=== PATIENT | female | born 1950 | race Caucasian/White ===

== ENCOUNTER 2016-09-27 07:30 | Inpatient (IN) | payer OTHER ==
[~2016-09-27] VITALS: Ht 149.9 cm; Wt 111.1 kg
[~2016-09-27 07:30] MED LIST: ACCUPRIL20 MG PO; ASPIRIN81 M1 PO; BENICAR20 MG PO; CALTRATE600 MG PO; CEFPODOXIME PR200 MG PO; FENOFIBRATE160 M1 PO; GLUCOPHAGE500 MG PO; HYDROCHLOROTH12.5 M3 PO; LEVAQUIN750 MG PO; LEVOTHROID100 MCG PO; LISINOPRIL-HCT1 EAC3 PO; LO-DOSE ASPIRIN81 M2 PO; LOPID600 M1 PO; PREDNISONE50 MG PO; PROVENTIL HFA6.7 GM IH; SYNTHROID125 MCG PO
[2016-09-27 09:32] VITALS: BP 113/59
[2016-09-27 09:53] LABS: POINT-OF-CARE METER ID UU14174212
[2016-09-27 14:23] LABS: POINT-OF-CARE USER ID 515036437
[2016-09-27 16:45] VITALS: BP 117/64
[2016-09-27 17:50] LABS: POINT-OF-CARE USER ID STWLMB34
[2016-09-27 17:57] LABS: HEMATOCRIT 40.9 % (36.0-46.0); MCH 30.4 PG (29.0-34.0); MCHC 33.3 G/DL (30.0-36.0); MCV 91.3 FL (83-99); MEAN PLAT.VOLUME 9.7 uM^3 (9.5-12.4); RBC DIS.WIDTH-CV 13.2 % (11.8-14.6); RBC DIS.WIDTH-SD 43.8 % (39-53); RED BLOOD COUNT 4.48 M/uL (3.80-5.20)
[2016-09-27 18:02] LABS: PLATELET COUNT 281 K/uL (156-360); WHITE BLOOD COUNT 11.5 K/uL (4.1-10.2)
[2016-09-27 18:20] LABS: ANION GAP 10 MEQ/L (2-14); CHLORIDE 107 MEQ/L (99-109); GFR ESTIMATE (CALCULATED) > 59 mL/min/; GLUCOSE 154 mg/dL (70-99); POTASSIUM 3.6 MEQ/L (3.7-5.4); SAMPLE HEMOLYSIS CHECK 0; SAMPLE ICTERIC CHECK 0; SAMPLE LIPEMIA CHECK 0; SODIUM 141 MEQ/L (136-147); UREA NITROGEN (BUN) 21 mg/dL (9-23)
[2016-09-27 20:44] VITALS: BP 124/70
[2016-09-28] VITALS (7 sets, daily range): BP systolic 111–120; BP diastolic 55–63
[2016-09-28 07:51] LABS: HEMATOCRIT 39.2 % (36.0-46.0); MCHC 33.2 G/DL (30.0-36.0); MCV 93.3 FL (83-99); PLATELET COUNT 296 K/uL (156-360); RBC DIS.WIDTH-CV 13.6 % (11.8-14.6); RBC DIS.WIDTH-SD 46.2 % (39-53); WHITE BLOOD COUNT 9.9 K/uL (4.1-10.2)
[2016-09-28 08:17] LABS: ANION GAP 8 MEQ/L (2-14); CHLORIDE 102 MEQ/L (99-109); GFR ESTIMATE (CALCULATED) > 59 mL/min/; GLUCOSE 130 mg/dL (70-99); SAMPLE HEMOLYSIS CHECK 0; SAMPLE ICTERIC CHECK 0; SAMPLE LIPEMIA CHECK 0; SODIUM 139 MEQ/L (136-147); UREA NITROGEN (BUN) 15 mg/dL (9-23)
[2016-09-28 08:24] LABS: POTASSIUM 4.7 MEQ/L (3.7-5.4)
[2016-09-29 00:02] VITALS: BP 114/55
[2016-09-29 03:47] VITALS: BP 115/57
[2016-09-29 06:52] LABS: HEMATOCRIT 37.6 % (36.0-46.0); MCH 30.9 PG (29.0-34.0); MCHC 33.2 G/DL (30.0-36.0); MCV 92.8 FL (83-99); MEAN PLAT.VOLUME 10.2 uM^3 (9.5-12.4); PLATELET COUNT 274 K/uL (156-360); RBC DIS.WIDTH-CV 13.6 % (11.8-14.6); RBC DIS.WIDTH-SD 46.2 % (39-53); RED BLOOD COUNT 4.05 M/uL (3.80-5.20); WHITE BLOOD COUNT 8.9 K/uL (4.1-10.2)
[2016-09-29 07:20] LABS: ANION GAP 8 MEQ/L (2-14); CHLORIDE 101 MEQ/L (99-109); GFR ESTIMATE (CALCULATED) > 59 mL/min/; GLUCOSE 111 mg/dL (70-99); POTASSIUM 3.8 MEQ/L (3.7-5.4); SAMPLE HEMOLYSIS CHECK 0; SAMPLE ICTERIC CHECK 0; SAMPLE LIPEMIA CHECK 0; SODIUM 137 MEQ/L (136-147); UREA NITROGEN (BUN) 12 mg/dL (9-23)
[2016-09-29 07:32] VITALS: BP 119/74
[2016-09-29] MEDS ORDERED: TRAMADOL HCL50 MG PO (09:24)
== END 2016-09-29 10:18 | disposition home or self-care (01) | DRG 740 ==
LOC: 2SOUTH 07:30 → 2EAST 09:08 → 2SOUTH 10:03 → 2EAST 15:48
PROVIDERS: Obstetrics & Gynecology Gynecologic Oncology
DX: C54.1 Malignant neoplasm of endometrium (principal); D25.9 Leiomyoma of uterus, unspecified; E66.01 Morbid (severe) obesity due to excess calories; Z68.42 Body mass index [BMI] 45.0-49.9, adult; I10 Essential (primary) hypertension; E11.9 Type 2 diabetes mellitus without complications; E78.00 Pure hypercholesterolemia, unspecified; Z85.850 Personal history of malignant neoplasm of thyroid; E89.0 Postprocedural hypothyroidism; Z86.718 Personal history of other venous thrombosis and embolism; Z86.011 Personal history of benign neoplasm of the brain; Z79.82 Long term (current) use of aspirin; Z79.84 Long term (current) use of oral hypoglycemic drugs; Z88.1 Allergy status to other antibiotic agents
CPT/HCPCS: 36415; 80048; 82948; 85027; 86850; 86900; 86901; 86920; 88305; 88309; 88360; 94799; J0330; J0690; J1100; J1170; J1650; J1815; J2250; J2270; J2405; J2710; J2765; J3010; J7120

== ENCOUNTER 2017-05-16 11:12 | Observation (INO) | payer OTHER ==
[~2017-05-16] VITALS: Ht 154.9 cm; Wt 105.3 kg
[~2017-05-16 11:12] MED LIST changes: +TRAMADOL HCL50 MG PO
[2017-05-16 13:08] LABS: EOSINOPHIL (%) 6.8 % (0-5); EOSINOPHIL COUNT 0.5 K/uL (0-0.3); HEMATOCRIT 44.1 % (36.0-46.0); IMMATURE GRANULOCYTE (%) 0.6 % (0.0-0.7); INSTRUMENT ABS NEUTROPHIL CT 5.3 K/uL; LYMPHOCYTE COUNT 0.9 K/uL (1.0-2.8); MCH 30.5 PG (29.0-34.0); MCHC 32.7 G/DL (30.0-36.0); MCV 93.4 FL (83-99); MEAN PLAT.VOLUME 9.6 uM^3 (9.5-12.4); MONOCYTE (%) 1.9 % (3-12); MONOCYTE COUNT 0.1 K/uL (0-0.8); NEUTROPHIL (%) 78.1 % (45-76); NEUTROPHIL COUNT 5.3 K/uL (1.8-6.4); PLATELET COUNT 310 K/uL (156-360); RBC DIS.WIDTH-CV 13.1 % (11.8-14.6); RBC DIS.WIDTH-SD 44.5 % (39-53); RED BLOOD COUNT 4.72 M/uL (3.80-5.20); WHITE BLOOD COUNT 6.8 K/uL (4.1-10.2)
[2017-05-16 13:12] LABS: PROTHROMBIN TIME 11.3 SEC (10.2-12.9)
[2017-05-16 13:15] LABS: PTT 34.3 SEC (25-37)
[2017-05-16 13:24] LABS: CHLORIDE 105 mEq/L (99-109); POTASSIUM 4.4 mEq/L (3.7-5.4); SODIUM 141 mEq/L (136-147)
[2017-05-16 13:25] LABS: MAGNESIUM 1.9 mg/dL (1.3-2.7)
[2017-05-16 13:26] LABS: GLUCOSE 120 mg/dL (70-99)
[2017-05-16 13:28] LABS: ANION GAP 12 MEQ/L (2-14)
[2017-05-16 13:30] LABS: GFR ESTIMATE (CALCULATED) 59 mL/min/
[2017-05-16 13:31] LABS: TROP-I INTERPRETATION NEGATIVE; TROPONIN-I < 0.01 ng/mL (0.0-0.30); UREA NITROGEN (BUN) 24 mg/dL (9-23)
[2017-05-16] MEDS ORDERED: PROAIR HFA8.5 GM IH (16:43)
[2017-05-16 18:27] VITALS: BP 188/84
[2017-05-16 19:33] VITALS: BP 125/64
[2017-05-16 20:16] LABS: TROP-I INTERPRETATION NEGATIVE; TROPONIN-I 0.02 ng/mL (0.0-0.30)
[2017-05-16 23:33] VITALS: BP 112/54
[2017-05-17 01:20] LABS: TROP-I INTERPRETATION NEGATIVE; TROPONIN-I < 0.01 ng/mL (0.0-0.30)
[2017-05-17 03:14] VITALS: BP 110/53
[2017-05-17 05:19] LABS: CHLORIDE 108 mEq/L (99-109); POTASSIUM 4.6 mEq/L (3.7-5.4); SODIUM 140 mEq/L (136-147)
[2017-05-17 05:20] LABS: GLUCOSE 153 mg/dL (70-99)
[2017-05-17 05:22] LABS: ANION GAP 9 MEQ/L (2-14)
[2017-05-17 05:24] LABS: GFR ESTIMATE (CALCULATED) > 59 mL/min/
[2017-05-17 05:25] LABS: UREA NITROGEN (BUN) 25 mg/dL (9-23)
[2017-05-17 06:27] LABS: POINT-OF-CARE METER ID UU14208753
[2017-05-17 07:45] VITALS: BP 114/55
[2017-05-17 12:15] VITALS: BP 115/59
[2017-05-17 16:20] LABS: POINT-OF-CARE METER ID UU14117124
[2017-05-17 16:30] VITALS: BP 113/57
[2017-05-17 19:36] VITALS: BP 109/57
[2017-05-17 23:29] VITALS: BP 102/56
[2017-05-18 03:30] VITALS: BP 110/64
[2017-05-18 07:04] LABS: POINT-OF-CARE METER ID UU14117124
[2017-05-18 07:46] VITALS: BP 129/62
[2017-05-18] MEDS ORDERED: LEVAQUIN750 MG PO (10:58)
[2017-05-18] MEDS ORDERED: PREDNISONE20 MG PO ×2 (11:07→11:31)
[2017-05-18] MEDS ORDERED: ADVAIR HFA120 INHALA IH (11:17)
[2017-05-18] MEDS ORDERED: MUCINEX D ER T1 EACH PO (11:17)
[2017-05-18] MEDS ORDERED: ADVAIR 250/501 DISK IH (11:31)
[2017-05-18] MEDS ORDERED: MUCINEX600 MG PO (11:33)
[2017-05-18 11:39] VITALS: BP 129/73
[2017-05-18 12:00] LABS: POINT-OF-CARE METER ID UU14117124
[2017-05-18] MEDS ORDERED: VENTOLIN HFA18 GM IH (23:42)
== END 2017-05-18 13:00 | disposition home or self-care (01) ==
LOC: EME 11:12 → EDOF 16:17 → 3EAST 16:17 → ENRESERV 16:19 → 3EAST 18:10
PROVIDERS: Emergency Medicine; Internal Medicine
DX: J20.9 Acute bronchitis, unspecified (principal); J96.01 Acute respiratory failure with hypoxia; E66.01 Morbid (severe) obesity due to excess calories; Z68.41 Body mass index [BMI] 40.0-44.9, adult; E11.9 Type 2 diabetes mellitus without complications; I10 Essential (primary) hypertension; E89.0 Postprocedural hypothyroidism; Z85.850 Personal history of malignant neoplasm of thyroid; Z85.42 Personal history of malignant neoplasm of other parts of uterus; Z86.011 Personal history of benign neoplasm of the brain; Z90.49 Acquired absence of other specified parts of digestive tract; Z90.710 Acquired absence of both cervix and uterus; Z86.718 Personal history of other venous thrombosis and embolism; Z79.82 Long term (current) use of aspirin; Z79.4 Long term (current) use of insulin; Z88.2 Allergy status to sulfonamides; Z88.8 Allergy status to other drugs, medicaments and biological substances
CPT/HCPCS: 71275; 80048; 82948; 83735; 84484; 85025; 85610; 85730; 93005; 94640; 94640 76; 94799; 99202; G0378; J1650; J1815; J1956; J2920; J2930; J7030; J7512

== ENCOUNTER 2017-05-18 21:25 | Emergency (ER) | payer OTHER ==
[~2017-05-18] VITALS: Ht 154.9 cm; Wt 106.6 kg
[~2017-05-18 21:25] MED LIST changes: +ADVAIR 250/501 DISK IH; +ADVAIR HFA120 INHALA IH; +MUCINEX D ER T1 EACH PO; +MUCINEX600 MG PO; +PREDNISONE20 MG PO; +PROAIR HFA8.5 GM IH
[2017-05-18] MEDS ORDERED: VENTOLIN HFA18 GM IH (23:42)
[2017-05-19 00:19] VITALS: BP 124/66
== END 2017-05-19 00:21 | disposition home or self-care (01) ==
LOC: EME 21:25
DX: R06.00 Dyspnea, unspecified (principal); T48.6X5A Adverse effect of antiasthmatics, initial encounter; J44.9 Chronic obstructive pulmonary disease, unspecified; E78.5 Hyperlipidemia, unspecified; E11.9 Type 2 diabetes mellitus without complications; Z79.84 Long term (current) use of oral hypoglycemic drugs; Z85.850 Personal history of malignant neoplasm of thyroid; Z86.718 Personal history of other venous thrombosis and embolism; Z79.82 Long term (current) use of aspirin; Z90.49 Acquired absence of other specified parts of digestive tract
CPT/HCPCS: 94640; 99281; 99284

== ENCOUNTER 2017-07-28 20:15 | Inpatient (IN) | payer OTHER ==
[~2017-07-28] VITALS: Ht 157.5 cm; Wt 104.3 kg
[~2017-07-28 20:15] MED LIST changes: +VENTOLIN HFA18 GM IH
[2017-07-28 21:05] LABS: HEMATOCRIT 45.5 % (36.0-46.0); MCH 31.2 PG (29.0-34.0); MCHC 33.6 G/DL (30.0-36.0); MCV 92.7 FL (83-99); MEAN PLAT.VOLUME 9.4 uM^3 (9.5-12.4); PLATELET COUNT 373 K/uL (156-360); RBC DIS.WIDTH-CV 13.1 % (11.8-14.6); RBC DIS.WIDTH-SD 44.3 % (39-53); RED BLOOD COUNT 4.91 M/uL (3.80-5.20); WHITE BLOOD COUNT 8.7 K/uL (4.1-10.2)
[2017-07-28 21:15] LABS: CHLORIDE 104 mEq/L (99-109); POTASSIUM 4.1 mEq/L (3.7-5.4); SODIUM 140 mEq/L (136-147)
[2017-07-28 21:16] LABS: GLUCOSE 121 mg/dL (70-99)
[2017-07-28 21:18] LABS: ANION GAP 10 MEQ/L (2-14)
[2017-07-28 21:20] LABS: GFR ESTIMATE (CALCULATED) 53 mL/min/
[2017-07-28 21:21] LABS: UREA NITROGEN (BUN) 22 mg/dL (9-23)
[2017-07-28 21:24] LABS: TROP-I INTERPRETATION NEGATIVE; TROPONIN-I < 0.01 ng/mL (0.0-0.30)
[2017-07-29] MEDS ORDERED: DUONEB 2.5-0.5 M3 ML AEROSOL (01:57)
[2017-07-29] MEDS ORDERED: HYDROCHLOROTH12.5 M3 PO (01:58)
[2017-07-29] MEDS ORDERED: ATARAX,VISTARIL25 MG PO (01:59)
[2017-07-29] MEDS ORDERED: VITAMIN D22000 UNIT PO (02:01)
[2017-07-29] MEDS ORDERED: BENZONATATE100 MG PO (02:03)
[2017-07-29 06:50] LABS: POINT-OF-CARE METER ID UU13113725
[2017-07-29 07:36] VITALS: BP 102/59
[2017-07-29 11:01] VITALS: BP 105/57
[2017-07-29 11:12] LABS: POINT-OF-CARE METER ID UU13113774
[2017-07-29 15:11] LABS: INFLUENZA A VIRAL ANTIGEN NEGATIVE; INFLUENZA B VIRAL ANTIGEN NEGATIVE
[2017-07-29 15:47] VITALS: BP 92/54
[2017-07-29 16:01] VITALS: BP 94/51
[2017-07-29 16:19] LABS: POINT-OF-CARE METER ID UU13113774
[2017-07-29 21:23] LABS: POINT-OF-CARE METER ID UU13113725
[2017-07-29 23:56] VITALS: BP 107/58
[2017-07-30 06:27] LABS: POINT-OF-CARE METER ID UU13113725
[2017-07-30 06:30] LABS: EOSINOPHIL (%) 0 % (0-5); HEMATOCRIT 40.3 % (36.0-46.0); IMMATURE GRANULOCYTE (%) 0.5 % (0.0-0.7); IMMATURE GRANULOCYTE COUNT 0.1 K/uL; INSTRUMENT ABS NEUTROPHIL CT 8.8 K/uL; LYMPHOCYTE COUNT 1.1 K/uL (1.0-2.8); MCH 31.3 PG (29.0-34.0); MCHC 33.5 G/DL (30.0-36.0); MCV 93.3 FL (83-99); MEAN PLAT.VOLUME 9.7 uM^3 (9.5-12.4); MONOCYTE (%) 2.6 % (3-12); MONOCYTE COUNT 0.3 K/uL (0-0.8); NEUTROPHIL (%) 86.3 % (45-76); NEUTROPHIL COUNT 8.8 K/uL (1.8-6.4); PLATELET COUNT 315 K/uL (156-360); RBC DIS.WIDTH-SD 44.7 % (39-53); RED BLOOD COUNT 4.32 M/uL (3.80-5.20); WHITE BLOOD COUNT 10.2 K/uL (4.1-10.2)
[2017-07-30 06:45] VITALS: BP 116/59
[2017-07-30 06:52] LABS: ALKALINE PHOSPHATASE 54 IU/L (3-129); ANION GAP 9 MEQ/L (2-14); CHLORIDE 105 MEQ/L (99-109); GFR ESTIMATE (CALCULATED) > 59 mL/min/; GLUCOSE 162 mg/dL (70-99); POTASSIUM 4.5 MEQ/L (3.7-5.4); SAMPLE HEMOLYSIS CHECK 0; SAMPLE ICTERIC CHECK 0; SAMPLE LIPEMIA CHECK 0; SODIUM 141 MEQ/L (136-147); TOTAL BILIRUBIN 0.3 MG/DL (0.0-1.0); UREA NITROGEN (BUN) 29 mg/dL (9-23)
[2017-07-30 11:04] LABS: POINT-OF-CARE METER ID UU13113725
[2017-07-30 15:20] VITALS: BP 111/55
[2017-07-30 16:19] LABS: POINT-OF-CARE METER ID UU13113725
[2017-07-30 21:29] LABS: POINT-OF-CARE METER ID UU13113725
[2017-07-30 23:27] VITALS: BP 106/59
[2017-07-31 06:00] LABS: POINT-OF-CARE METER ID UU13113725
[2017-07-31 06:46] LABS: GFR ESTIMATE (CALCULATED) > 59 mL/min/; UREA NITROGEN (BUN) 29 mg/dL (9-23)
[2017-07-31 07:43] VITALS: BP 108/60
[2017-07-31] MEDS ORDERED: PREDNISONE10 MG PO (08:19)
[2017-07-31] MEDS ORDERED: ADVAIR HFA120 INHALA IH (08:19)
[2017-07-31] MEDS ORDERED: CEFTIN500 MG PO (08:19)
== END 2017-07-31 11:03 | disposition home or self-care (01) | DRG 202 ==
LOC: EME 20:15 → EDOF 07-29 03:01 → 5EAST 07-29 03:01 → CANRESERV 07-29 03:15 → ENRESERV 07-29 03:15 → 5EAST 07-29 04:01 → ENPENDDIS 07-31 → 5EAST 07-31 11:03
PROVIDERS: Hospitalist
DX: J20.9 Acute bronchitis, unspecified (principal); J96.01 Acute respiratory failure with hypoxia; J45.909 Unspecified asthma, uncomplicated; J98.09 Other diseases of bronchus, not elsewhere classified; E78.5 Hyperlipidemia, unspecified; E11.9 Type 2 diabetes mellitus without complications; I10 Essential (primary) hypertension; E89.0 Postprocedural hypothyroidism; E66.9 Obesity, unspecified; Z68.41 Body mass index [BMI] 40.0-44.9, adult; Z86.011 Personal history of benign neoplasm of the brain; Z85.850 Personal history of malignant neoplasm of thyroid; Z86.718 Personal history of other venous thrombosis and embolism; Z79.82 Long term (current) use of aspirin; Z88.2 Allergy status to sulfonamides; Z85.42 Personal history of malignant neoplasm of other parts of uterus
CPT/HCPCS: 71020; 71275; 80048; 80053; 82565; 82948; 83880; 84484; 84520; 85025; 85027; 87070; 87205; 87502; 93005; 94640; 94640 76; 94667; 94760; 94799; 99202; 99281; 99285; J0456; J0696; J1650; J1815; J2920; J2930; J7040; J7050